=== PATIENT | female | born 1985 | race American Indian/Alaskan Native ===

== ENCOUNTER 2019-05-25 15:19 | Emergency (ER) | payer MEDICAID ==
--- NOTE | 2019-05-25 15:37 | Event Note ---
ED Screening Note ED Screening Note: vaginal bleeding that began a week ago lower back pain pt states is currently 18 weeks has received no OB care /P:5/A:0 PMHx aortic valve issues, states she is having surgery allergy: zofran This initial assessment/diagnostic orders/clinical plan/treatment(s) is/are subject to change based on patients health status, clinical progression and re- assessment by fellow clinical providers in the ED. Further treatment and workup at subsequent clinical providers discretion. Patient/guardian urged not to elope from the ED as their condition may be serious if not clinically assessed and managed. Initial orders include: labs, OB US
[2019-05-25 16:18] LABS: Hematocrit 29.8 % (30.3-42.9); Hemoglobin 9.5 gm/dl (10.1-14.3); Mean Corpuscular HGB Conc 32 % (30-34); Mean Corpuscular Volume 74 fl (79-97); Platelet Count 253 K/mm3 (140-440); Red Blood Count 4.03 M/mm3 (3.65-5.03); Red Cell Distribution Width 18.4 % (13.2-15.2)
--- NOTE | 2019-05-25 16:32 | Emergency Department Report ---
ED Female HPI - General Chief complaint: Vaginal Bleeding Stated complaint: 18 WKS /BLEEDING Time Seen by Provider: 05/25/19 15:34 Source: patient Mode of arrival: Ambulatory Limitations: No Limitations - History of Present Illness MD Complaint: vaginal bleeding -: Gradual Radiation: suprapubic Severity: moderate Quality: cramping Improves with: none Worsens with: none Are you Now?: No Associated Symptoms: vaginal bleeding (18 weeks ). denies: loss of appetite, dysuria, rash, syncope, weakness - Related Data Sexually active: Yes Previous Rx's Medication Instructions Recorded Last Taken Type Azithromycin [Zithromax Z-REGGIE] 250 mg PO DAILY #6 tablet 04/14/16 Unknown Rx HYDROcodone/APAP 5-325 [Golva 1 each PO Q6HR PRN #30 tablet 04/14/16 Unknown Rx 5/325] Allergies Allergy/AdvReac Type Severity Reaction Status Date / Time ondansetron HCl [From Zofran] Allergy Rash Verified 05/25/19 15:20 ED Review of Systems ROS: Stated complaint: 18 WKS /BLEEDING Other details as noted in HPI Comment: All other systems reviewed and negative ED Past Medical Hx - Past Medical History Previous Medical History?: No - Surgical History Additional Surgical History: tonsil - Social History Smoking Status: Current Some Day Smoker Substance Use Type: None - Medications Home Medications: Home Medications Medication Instructions Recorded Confirmed Last Taken Type Azithromycin [Zithromax Z-REGGIE] 250 mg PO DAILY #6 tablet 04/14/16 Unknown Rx HYDROcodone/APAP 5-325 [Golva 1 each PO Q6HR PRN #30 tablet 04/14/16 Unknown Rx 5/325] ED Physical Exam - General Limitations: No Limitations General appearance: alert, in no apparent distress - Head Head exam: Present: atraumatic, normocephalic - Eye Eye exam: Present: normal appearance, PERRL, EOMI. Absent: conjunctival injection, nystagmus Pupils: Present: normal accommodation. Absent: unequal - ENT ENT exam: Present: normal exam, mucous membranes moist - Neck Neck exam: Present: normal inspection - Respiratory Respiratory exam: Present: normal lung sounds bilaterally. Absent: respiratory distress, wheezes, rales, rhonchi - Cardiovascular Cardiovascular Exam: Present: regular rate, normal rhythm. Absent: systolic murmur, diastolic murmur, rubs, gallop - GI/Abdominal GI/Abdominal exam: Present: soft, normal bowel sounds - Extremities Exam Extremities exam: Present: normal inspection - Back Exam Back exam: Present: normal inspection - Neurological Exam Neurological exam: Present: alert, oriented X3 - Psychiatric Psychiatric exam: Present: normal affect, normal mood - Skin Skin exam: Present: warm, dry, intact, normal color. Absent: rash ED Course Vital Signs 05/25/19 15:29 Temperature 98.2 F Pulse Rate 100 H Respiratory 18 Rate Blood Pressure 120/64 O2 Sat by Pulse 100 Oximetry ED Medical Decision Making - Lab Data Result diagrams: 05/25/19 15:51 - Radiology Data Radiology results: report reviewed [facility] [address] [place] [address] Ultrasound Report Signed Patient: DIMAS OROZCO MR#: [id number] : 1985 Acct:[id number] Age/Sex: 33 / F ADM Date: 05/25/19 Loc: ED Attending Dr: Ordering Physician: EDDY GARCIA Date of Service: 05/25/19 Procedure(s): US OB >= 14 weeks Fetus Accession Number(s): [id number] cc: EDDY GARCIA Limited OB ultrasound for dates FINDINGS: Single fetus is identified in vertex presentation. Appropriate measurements reveal an MA of 17 weeks 0 days for an EDC of 11/02/2019. Signer Name: Shahriar Rocha MD Signed: 05/25/2019 5:33 PM Workstation Name: [id number] Transcribed By: JM Dictated By: Shahriar Rocha MD Electronically Authenticated By: Shahriar Rocha MD Signed Date/Time: 05/25/191732 DD/ 31 TD/TT: - Medical Decision Making 33year old GXPX female presents with second trimester vaginal bleeding. Possible etiologies of the vaginal of bleeding were considered, including but not limited to: ectopic , spontanous miscarriage, gestational trophoblastic disease, implantaton bleeding, molar and fiborids. Clinically the patient looks well, no indications for transfusion and no signs or symptoms of peritonitis. An ultrasound was performed which showed single fetus in vertex position. 11/02/2019.. Additional labs demonstrated: After careful consideration I believe the patient is safe to be discharged home with outpatient [facility] followup. I had an extensive disucssion with the patient about the possible etiologies of the vaginal bleeding and answered all their questions. I also provided education on care. The patient is agreeable to outpatient [facility] for a 48 hour BETA-HCG. I encouraged them to call if they have any questions and return to the ED for any worsening of symptoms. Critical care attestation.: If time is entered above; I have spent that time in minutes in the direct care of this critically ill patient, excluding procedure time. ED Disposition Clinical Impression: Threatened Disposition: DC-01 TO HOME OR SELFCARE Is pt being admited?: No Does the pt Need Aspirin: No Condition: Stable Instructions: Threatened Miscarriage (ED) Referrals: [facility] [Provider Group] - 3-5 Days
[2019-05-25] MEDS ORDERED: METOCLOPRAMIDE 10 MG/2 ML INJ IV STA (17:33)
[2019-05-25] MEDS ORDERED: diphenhydrAMINE 50 MG/ML VIAL IV STA (17:33)
--- NOTE | 2019-05-25 17:37 | Ultrasound Report ---
Limited OB ultrasound for dates FINDINGS: Single fetus is identified in vertex presentation. Appropriate measurements reveal an MA of 17 weeks 0 days for an EDC of 11/02/2019. Signer Name: Shahriar Rocha MD Signed: 05/25/2019 5:33 PM Workstation Name: [id number]
[2019-05-25] MEDS ORDERED: HYDROcodone/ACETAMINOPHEN 5-325 MG TAB PO STA (17:40)
[2019-05-25 19:27] VITALS: BP 138/55
== END 2019-05-25 19:26 | disposition home or self-care (01) ==
LOC: ED 15:19
DX: O20.0 Threatened abortion (principal); O99.312 Alcohol use complicating pregnancy, second trimester; Z98.890 Other specified postprocedural states; Z79.899 Other long term (current) drug therapy; Z88.8 Allergy status to other drugs, medicaments and biological substances
CPT/HCPCS: 36415; 76805; 84702; 85027; 86900; 86901; 96374; 96375; 99284; J1200; J2765